=== PATIENT | female | born 1980 | race Caucasian/White ===

== ENCOUNTER 2019-04-06 16:51 | Inpatient (IN) | payer OTHER ==
[2019-04-06] MEDS ORDERED: TERBUTALINE 1 MG/ML VIAL SQ PRN (17:41)
[2019-04-06] MEDS ORDERED: METHYLERGONOVINE 0.2 MG/ML 1 ML AMP IM PRN (17:41)
[2019-04-06] MEDS ORDERED: LIDOCAINE 0.5% (PF) 5 MG/ML (50 ML SDV) SQ PRN (17:41)
[2019-04-06] MEDS ORDERED: CARBOPROST TROMETHAMINE 250 MCG/ML 1 ML AMP IM PRN (17:41)
[2019-04-06] MEDS ORDERED: OXYTOCIN 10 UNIT/ML 1 ML VIAL IM PRN (17:41)
[2019-04-06] MEDS ORDERED: LACTATED RINGERS 1,000 ML IV SCH (17:45)
--- NOTE | 2019-04-06 17:54 | P.HPOB ---
History of Present Illness H&P Date: 04/06/19 Chief Complaint: term , active labor. This is a 39-year-old presented to labor and delivery with complaints of vaginal bleeding and contractions. Patient has not received any, any care for this itself she is unknown of how far along she is. Patient started srinath around 1:30 this afternoon. Patient is unaware of when she started feeling movement. She does state her blood type is Rh-. Her last baby was delivered at [facility], term, no concerns with the or the delivery. Review of Systems Constitutional: Denies chills, Denies fatigue, Denies fever Ears, nose, mouth and throat: Denies headache Cardiovascular: Denies leg edema Respiratory: Denies dyspnea Gastrointestinal: Denies nausea, Denies vomiting Genitourinary: Reports Medications and Allergies Home Medications Medication Instructions Recorded Confirmed Type No Known Home Medications 04/06/19 04/06/19 History Allergies Allergy/AdvReac Type Severity Reaction Status Date / Time No Known Allergies Allergy Verified 04/06/19 17:11 Exam Osteopathic Statement: *. No significant issues noted on an osteopathic structural exam other than those noted in the History and Physical/Consult. Intake and Output 04/06/19 04/06/19 04/06/19 06:59 14:59 22:59 Other: Weight 78.018 kg Targeted physical exam is performed upon entering the room and general this a well-nourished well-developed female in obvious discomfort, her abdomen is gravid on cervical exam she is completely dilated and the is noted to be a +3 station. Meconium-stained scalp was noted. Assessment and Plan (1) Term Current Visit: Yes Status: Acute Code(s): Z34.90 - ENCNTR FOR SUPRVSN OF NORMAL , UNSP, UNSP TRIMESTER SNOMED Code(s): 56605839 (2) Active labor Current Visit: Yes Status: Acute Code(s): MXT1717 - SNOMED Code(s): 151485655 (3) No care in current Current Visit: Yes Status: Acute Code(s): O09.30 - SUPRVSN OF PREG W INSUFFICIENT ANTENAT CARE, UNSP TRIMESTER SNOMED Code(s): 281053628 Plan: Will admit for delivery. labs were drawn prior to delivery, UDS was obtained given no care.
--- NOTE | 2019-04-06 17:56 | P.PROBDLV ---
Vaginal Delivery Note - . Vaginal Delivery Note: Patient is noted to be completely dilated on initial physical exam, with excellent maternal effort she has a normal spontaneous vaginal delivery of a viable male . The placenta is doubly clamped and cut and delivered spontaneously intact with a three-vessel cord being noted. Uterus is noted to be firm and below the umbilicus, on inspection the patient's vaginal vault a midline second-degree laceration was noted and this was repaired in the usual fashion with 3-0 Rapide. Bleeding is noted to be minimal. Male infant delivered at 1733, weight of 7 lbs. 11 oz. with Apgars of 9 and 9 at one and 5 minutes respectively Mom and tolerated delivery well and are resting comfortably All counts were correct 2
[2019-04-06] MEDS ORDERED: ZOLPIDEM 5 MG TAB PO PRN (17:57)
[2019-04-06] MEDS ORDERED: ACETAMINOPHEN TAB 325 MG TAB PO PRN (17:57)
[2019-04-06] MEDS ORDERED: HYDROCORTISONE 2.5% RECTAL CREAM 30 GM TUBE RECTAL PRN (17:57)
[2019-04-06] MEDS ORDERED: diphenhydrAMINE 25 MG CAP PO PRN (17:57)
[2019-04-06] MEDS ORDERED: HYDROcodone/APAP 5-325MG 1 EACH TAB PO PRN (17:57)
[2019-04-06] MEDS ORDERED: diphenhydrAMINE 50 MG/ML 1 ML VIAL IVP PRN ×2 (17:57)
[2019-04-06] MEDS ORDERED: BENZOCAINE/MENTHOL SPRAY 1 GM/SPRAY AEROSOL TOPICAL PRN (17:57)
[2019-04-06] MEDS ORDERED: SIMETHICONE 80 MG CHEWABLE PO PRN (17:57)
[2019-04-06] MEDS ORDERED: LANOLIN CREAM 5 GM TUBE TOPICAL PRN (17:57)
[2019-04-06] MEDS ORDERED: WITCH HAZEL 1 EACH MED..PAD TOPICAL PRN (17:57)
[2019-04-06] MEDS ORDERED: diphenhydrAMINE 50 MG CAP PO PRN (17:57)
[2019-04-06] MEDS ORDERED: IBUPROFEN 600 MG TAB PO PRN (17:57)
[2019-04-06] MEDS ORDERED: OXYTOCIN 20 UNITS/1000 ML NS 1,000 ML IV SCH (18:00)
[2019-04-06 18:08] LABS: Basophils % (A) 0 %; Eosinophils # (A) 0.1 k/uL (0-0.7); Eosinophils % (A) 0 %; HCT 44.3 % (34.0-46.0); HGB 15.1 gm/dL (11.4-16.0); Lymphocytes # (A) 1.9 k/uL (1.0-4.8); Lymphocytes % (A) 7 %; MCH 31.8 pg (25.0-35.0); MCV 93.4 fL (80.0-100.0); Mean Platelet Volume 9.2; Monocytes # (A) 0.9 k/uL (0-1.0); Monocytes % (A) 3 %; Neutrophils # (A) 24.2 k/uL (1.3-7.7); Neutrophils % (A) 89 %; Platelet Count 340 k/uL (150-450); RBC 4.74 m/uL (3.80-5.40); RDW 13.2 % (11.5-15.5); WBC 27.3 k/uL (3.8-10.6)
[2019-04-06 18:15] LABS: Mucus,Urine Moderate /hpf; RBC,Urine >182 /hpf (0-5); Squamous Epithelial Cell,Urine 32 /hpf (0-4); WBC,Urine >182 /hpf (0-5)
[2019-04-06 18:23] LABS: Amphetamine Screen,Urine Not Detected (NotDetected); Barbiturate Screen,Urine Not Detected (NotDetected); Benzodiazepines Screen,Urine Not Detected (NotDetected); Cocaine Screen,Urine Not Detected (NotDetected); Methadone Screen, Urine Not Detected (NotDetected); Opiate Screen,Urine Detected (NotDetected); Oxycodone Screen, Urine Not Detected (NotDetected); Phencyclidine Screen,Urine Not Detected (NotDetected); Tricyclic Antidepressant,Urine Not Detected (NotDetected); Urn Cannabinoid Scrn Not Detected (NotDetected)
[2019-04-06 18:24] LABS: Appearance,Urine Bloody (Clear); Color,Urine Dark Red
[2019-04-06 18:32] LABS: Appearance,Urine Clear (Clear); Bilirubin,Urine Negative (Negative); Blood,Urine Negative (Negative); Color,Urine Yellow; Glucose,Urine (UA) Negative (Negative); Ketones,Urine 3+ (Negative); Leukocyte Esterase,Urine Negative (Negative); Nitrite,Urine Negative (Negative); PH, Urine 5.5 (5.0-8.0); Protein,Urine Trace (Negative); Specific Gravity,Urine 1.021 (1.001-1.035); Urobilinogen,Urine <2.0 mg/dL (<2.0)
[2019-04-06 18:41] LABS: Amphetamine Screen,Urine Not Detected (NotDetected); Barbiturate Screen,Urine Not Detected (NotDetected); Benzodiazepines Screen,Urine Not Detected (NotDetected); Cocaine Screen,Urine Not Detected (NotDetected); Methadone Screen, Urine Not Detected (NotDetected); Opiate Screen,Urine Detected (NotDetected); Oxycodone Screen, Urine Not Detected (NotDetected); Phencyclidine Screen,Urine Not Detected (NotDetected); Tricyclic Antidepressant,Urine Not Detected (NotDetected); Urn Cannabinoid Scrn Not Detected (NotDetected)
[2019-04-06 19:05] VITALS: BMI 29.5
[2019-04-06] MEDS ORDERED: Rhogam IMMUNE GLOBULIN 1,500 UNIT/1 ML IM ONE (22:06)
[2019-04-06] MEDS: SENNOSIDES-DOCUSATE SODIUM 1 EACH TAB PO SCH (22:30)
[2019-04-06 23:26] LABS: Hepatitis B Surface Antigen Non-Reactive (Non-Reactive)
[2019-04-07 06:32] LABS: Basophils % (A) 0 %; Eosinophils # (A) 0.2 k/uL (0-0.7); Eosinophils % (A) 1 %; HCT 37.9 % (34.0-46.0); HGB 12.4 gm/dL (11.4-16.0); Lymphocytes # (A) 3.7 k/uL (1.0-4.8); Lymphocytes % (A) 18 %; MCH 30.6 pg (25.0-35.0); MCHC 32.8 g/dL (31.0-37.0); MCV 93.3 fL (80.0-100.0); Mean Platelet Volume 8.2; Monocytes # (A) 1.2 k/uL (0-1.0); Monocytes % (A) 6 %; Neutrophils # (A) 15.6 k/uL (1.3-7.7); Neutrophils % (A) 74 %; Platelet Count 297 k/uL (150-450); RBC 4.06 m/uL (3.80-5.40); RDW 13.3 % (11.5-15.5); WBC 21.1 k/uL (3.8-10.6)
[2019-04-07] MEDS: SENNOSIDES-DOCUSATE SODIUM 1 EACH TAB PO SCH ×2 (08:16→19:36)
--- NOTE | 2019-04-07 11:43 | P.PNOBGVD ---
Subjective - Subjective Principal diagnosis: PPD 1 Interval history: Patient has done well . Patient is ambulating and voiding without difficulty. She states her pain is well-controlled. Her lochia is moderate. She denies concerns. Patient reports: Reports appetite normal, Reports voiding normally, Reports pain well controlled, Reports ambulating normally : doing well Objective - Latest Vital Signs Latest vital signs: Vital Signs Temp Pulse Resp BP Pulse Ox 04/07/19 08:00 98.9 F 80 17 129/86 04/07/19 04:00 98.9 F 82 16 111/71 04/07/19 00:00 98.2 F 71 16 128/82 04/06/19 20:10 98.4 F 80 18 131/72 04/06/19 20:01 95.8 F L 74 20 185/100 04/06/19 19:43 92 18 140/84 04/06/19 19:10 97.7 F 86 18 150/80 04/06/19 18:40 79 18 150/80 04/06/19 18:26 98.2 F 84 18 133/77 04/06/19 18:10 81 18 139/89 04/06/19 17:55 83 18 144/76 04/06/19 17:40 97 F L 97 20 144/79 97 04/06/19 17:25 95.8 F L 74 18 185/100 Intake and Output 04/06/19 04/07/19 04/07/19 22:59 06:59 14:59 Output Total 400 Balance -400 Output: Urine 400 Straight 200 Other: # Voids 1 2 Weight 78.018 kg - Exam Extremities: Present: normal Abdomen: Present: normal appearance, soft Uterus: Present: normal, firm - Labs Labs: Abnormal Lab Results - Last 24 Hours (Table) 04/06/19 04/06/19 04/06/19 Range/Units 17:05 17:25 18:15 WBC 27.3 H (3.8-10.6) k/uL Neutrophils # 24.2 H (1.3-7.7) k/uL Monocytes # (0-1.0) k/uL Urine Appearance Bloody H (Clear) Urine Protein Trace H (Negative) Urine Ketones 3+ H (Negative) Urine RBC >182 H (0-5) /hpf Urine WBC >182 H (0-5) /hpf Ur Squamous Epith Cells 32 H (0-4) /hpf Urine Mucus Moderate H (None) /hpf Urine Opiates Screen Detected H Detected H (NotDetected) 04/07/19 Range/Units 06:18 WBC 21.1 H (3.8-10.6) k/uL Neutrophils # 15.6 H (1.3-7.7) k/uL Monocytes # 1.2 H (0-1.0) k/uL Urine Appearance (Clear) Urine Protein (Negative) Urine Ketones (Negative) Urine RBC (0-5) /hpf Urine WBC (0-5) /hpf Ur Squamous Epith Cells (0-4) /hpf Urine Mucus (None) /hpf Urine Opiates Screen (NotDetected) Assessment and Plan (1) Term Current Visit: Yes Status: Acute Code(s): Z34.90 - ENCNTR FOR SUPRVSN OF NORMAL , UNSP, UNSP TRIMESTER SNOMED Code(s): 97654842 (2) Active labor Current Visit: Yes Status: Acute Code(s): MZV2203 - SNOMED Code(s): 332401244 (3) No care in current Current Visit: Yes Status: Acute Code(s): O09.30 - SUPRVSN OF PREG W INSUFFICIENT ANTENAT CARE, UNSP TRIMESTER SNOMED Code(s): 791336580 Plan: Plan to continue routine postoperative care and anticipate discharge home tomorrow.
[2019-04-08] MEDS: SENNOSIDES-DOCUSATE SODIUM 1 EACH TAB PO SCH (08:20)
--- NOTE | 2019-04-08 09:34 | P.DS ---
Providers Date of admission: 04/06/19 17:30 Expected date of discharge: 04/08/19 Attending physician: Norma Turk - Discharge Diagnosis(es) (1) Term Current Visit: Yes Status: Acute (2) Active labor Current Visit: Yes Status: Acute (3) No care in current Current Visit: Yes Status: Acute (4) Status post vaginal delivery Current Visit: Yes Status: Acute Hospital Course: This is a pleasant 39-year-old 2 para 1001 that presented to labor and delivery in active labor. Patient had had no care up to this point. Patient was noted to be completely dilated and had a normal spontaneous vaginal delivery of a viable male infant at 1733 on 04/06. Weight of 7 lbs. 11 oz. with Apgars of 9 and 9 at one and 5 minutes respectively. Patient's course has been uneventful. On this day #2 she is ambulating and voiding without difficulty. She is tolerating a regular diet without nausea or vomiting and denies concerns as infant is going to be discharged soon she wishes discharge home. Patient Condition at Discharge: Good Plan - Discharge Summary New Discharge Prescriptions: No Action No Known Home Medications Discharge Medication List No Known Home Medications 04/06/19 [History] Follow up Appointment(s)/Referral(s): Norma Turk DO [Doctor of Osteopathic Medicine] - 6 Weeks Patient Instructions/Handouts: Vaginal Delivery (DC), Vaginal Delivery (GEN) Discharge Disposition: HOME SELF-CARE
[2019-04-08 10:58] LABS: HIV 1 AB Non-Reactive (Non-Reactive); HIV 2 AB Non-Reactive (Non-Reactive); HIV AB P24 Non-Reactive (Non-Reactive); HIV P24 AG Non-Reactive (Non-Reactive)
[2019-04-08 12:39] LABS: C. trachomatis,PCR Negative (Neg,Equiv); Chlamydia trachomatis Source Urine; N. gonorrhoeae,PCR Negative (Neg,Equiv); Neisseria Source Urine
[2019-04-08 16:12] VITALS: BP 115/77; PULSE 77; RESP 18; TEMP 98.5
--- NOTE | 2019-04-09 15:05 | P.MSEPDOC ---
Presenting Problems - Arrival Data Date of Arrival on Unit: 04/06/19 Time of Arrival on Unit: 16:51 Mode of Transport: Wheelchair - Complaint OB-Reason for Admission/Chief Complaint: Possible Onset of Labor, Vaginal Bleeding, Pain Comment: pt presents with lower back pain and bleeding, no care, unknown EDC Medical History - Information : 2 Para: 1 Term: 1 : 0 Abortions: Spontaneous or Elective: 0 Number of Living Children: 1 - History Complications: No Care Review of Systems - Review of Systems Constitutional: No problems Breast: No problems ENT: No problems Cardiovascular: No problems Respiratory: No problems Gastrointestinal: No problems Genitourinary: No problems Musculoskeletal: No problems Neurological: No problems Skin: No problems Vital Signs - Temperature Temperature: 98.5 F Temperature Source: Oral - Pulse Right Brachial Pulse Rate: 77 Pulse Assessment Method: Automatic Cuff - Respirations Respiratory Rate: 18 Oxygen Delivery Method: Room Air - Blood Pressure Right Arm Blood Pressure: 115/77 Blood Pressure Mean: 89 Blood Pressure Source: Automatic Cuff Medical Screen Scoring (Pre) - Cervical Exam Dilation: 8-10 cm = 3 Effacement: More than 50% = 2 Membranes: Ruptured = 3 - Uterine Contractions Frequency: < 36 weeks = 6 Duration: > 40 seconds = 2 Intensity: N/A - Maternal Vital Signs Maternal Temperature: N/A Maternal Blood Pressure: Systolic >139 = 2 Signs of Preeclampsia: N/A Maternal Respirations: N/A - Maternal Trauma Maternal Trauma: N/A - Assessment - Baby A Baseline FHR: 120 Heart Rate - NICHD Category: Category I (Normal) = 0 NST: Reactive Position: N/A - Total Score - Baby A Total Score - Baby A: 18 - Total Score - Baby B Total Score - Baby B: 18 - Total Score - Baby C Total Score - Baby C: 18 - Level of Risk - Baby A Level of Risk - Baby A: High (10+) - Level of Risk - Baby B Level of Risk - Baby B: High (10+) - Level of Risk - Baby C Level of Risk - Baby C: High (10+) Physician Notification (Pre) - Physician Notified Physician Notified Date: 04/06/19 Physician Notified Time: 17:15 Physician/Practitioner Notifed:: Dr. Turk Spoke With: Dr. Turk New Order Received: Yes - Notification Comment Comment: admit for labor, she is coming in for delivery Disposition - Disposition OB Disposition: Admit, LDRP Suite Discharge Date: 04/08/19 Discharge Time: 19:30 I agree with the RN Medical Screening Exam: Yes Risk & Benefit of care provided described in d/c instruction: Yes Diagnosis: ENCOUNTER FOR FULL-TERM UNCOMPLICATED DELIVERY
== END 2019-04-08 19:30 | disposition home or self-care (01) | DRG 807 ==
LOC: FBPOP 16:51 → 4FBP 17:30
PROVIDERS: ADMIT Obstetrics & Gynecology Obstetrics; ATTEND Obstetrics & Gynecology Obstetrics
PROC: 10E0XZZ Delivery of Products of Conception, External Approach (ICD-10-PCS; principal; 2019-04-06)
PROC: 0KQM0ZZ Repair Perineum Muscle, Open Approach (ICD-10-PCS; 2019-04-06)
PROC: 3E0234Z Introduction of Serum, Toxoid and Vaccine into Muscle, Percutaneous Approach (ICD-10-PCS; 2019-04-06)
DX: O26.893 Other specified pregnancy related conditions, third trimester (principal); Z37.0 Single live birth; O70.1 Second degree perineal laceration during delivery; Z3A.00 Weeks of gestation of pregnancy not specified; Z67.11 Type A blood, Rh negative
CPT/HCPCS: 80306; 81001; 81003; 82947; 85025; 85461; 86762; 86780; 86850; 86900; 86901; 87340; 87390; 87491; 87591; 88307; 99213

== ENCOUNTER → 2024-02-12 | Outpatient (CLI) | payer OTHER ==
--- NOTE | 2024-02-14 09:57 | MM ---
Reason for Exam: Screening (asymptomatic). Baseline mammogram. Patient History: Menarche at age 15. First Full-Term at age 36. Late child-bearing (after 30). Premenopausal. Patient has history of breast feeding. Maternal aunt (great) had breast cancer. Last menstrual period: 01/20/2024 Risk Values: Keri 5 year model risk: 0.8%. NCI Lifetime model risk: 13.5%. Prior Study Comparison: Patient's first Mammogram. Tissue Density: The breasts are heterogeneously dense, which may obscure small masses. Findings: Analyzed By CAD. There is no suspicious group of microcalcifications or new suspicious mass in either breast. Overall Assessment: Negative, BI-RAD 1 Management: Screening Mammogram of both breasts in 1 year. . Patient should continue monthly self-breast exams. A clinical breast exam by your physician is recommended on an annual basis. This exam should not preclude additional follow-up of suspicious palpable abnormalities. Note on Keri scores and lifetime risk: 1. A Keri score greater than 3% is considered moderate risk. If this is the case, consider specialist referral to assess eligibility for a risk reducing agent. 2. If overall lifetime risk for the development of breast cancer is 20% or higher, the patient may qualify for future screening with alternating mammogram and breast MRI. Electronically signed and approved by: Nabor Cheema M.D. Radiologis
== END | disposition home or self-care (01) ==
LOC: RADMAMWWP 10:26
PROVIDERS: ATTEND Student in an Organized Health Care Education/Training Program
DX: Z12.31 Encounter for screening mammogram for malignant neoplasm of breast (principal); Z80.3 Family history of malignant neoplasm of breast
CPT/HCPCS: 77063; 77067